=== PATIENT | female | born 1940 | race Caucasian/White ===

== ENCOUNTER 2025-09-08 10:40 | Emergency (ER) | payer MEDICARE ==
[~2025-09-08] VITALS: Ht 160 cm; Wt 54.4 kg
[~2025-09-08 10:40] MED LIST: 'CLONIDINE0.1 MG PO; CARTIA XT300 MG PO; DILTIAZEM CD300 MG PO; LISINOPRIL40 MG PO; SYNTHROID,LEVO75 MCG PO; WARFARIN SOD5 MG PO
[2025-09-08 12:04] LABS: BASO # 0.1 10*3/uL (0.0-0.1); BASO % 0.8 % (0.0-1.0); EOS # 0.2 10*3/uL (0.0-0.4); EOS % 2.3 % (1.0-4.0); MEAN CELL VOLUME 86.9 fl (81.0-99.0); MEAN CORPUSCULAR HGB 27.9 pg (27.0-31.0); MEAN PLATELET VOLUME 10.5 fl (9.6-12.3); MONO # 0.5 10*3/uL (0.1-1.0); MONO % 6.1 % (3.0-9.0); NEUT # 6.1 10*3/uL (2.3-7.9); NEUT % 76.2 % (47.0-73.0); NUCLEATED RED BLOOD CELL 0.0 % (0.0-0.0); NUCLEATED RED BLOOD CELL 0.0 10*3/uL (0.0-0.0); PLATELET COUNT AUTOMATED 302 10*3/uL (130-400); RED CELL DISTRI WIDTH 12.9 % (0-14.5)
[2025-09-08 12:31] LABS: BUN 21 mg/dl (9-23)
[2025-09-08 13:22] LABS: BILIRUBIN Negative (Negative); BLOOD 3+ (Negative); KETONE 1+ (Negative); LEUKO ESTERASE 1+ (Negative); NITRITE Negative (Negative); PH 7.5 (4.5-8.0); SPECIFIC GRAVITY 1.020 (1.001-1.030); UROBILINOGEN 1.0 E.U./dl (0.0-1.0)
[2025-09-08 13:28] LABS: CLARITY Turbid (Clear); COLOR Red (Yellow)
[2025-09-08 13:31] LABS: RBC TNTC rbc/hpf (0-2)
[2025-09-08] MEDS ORDERED: CEFDINIR 300 MG CAP PO ONE (14:35)
[2025-09-08] MEDS ORDERED: OMNICEF300 MG PO (14:52)
== END 2025-09-08 14:57 | disposition home or self-care (01) ==
LOC: ED 10:40
PROVIDERS: Student in an Organized Health Care Education/Training Program
DX: N39.0 Urinary tract infection, site not specified (principal); R31.9 Hematuria, unspecified; N81.10 Cystocele, unspecified; R10.9 Unspecified abdominal pain; I10 Essential (primary) hypertension; I48.91 Unspecified atrial fibrillation